=== PATIENT | female | born 1970 | race Caucasian/White ===

== ENCOUNTER 2018-01-29 10:01 | Emergency (ER) | payer MEDICAID ==
[~2018-01-29] VITALS: Ht 167.6 cm; Wt 66.0 kg
[~2018-01-29 10:01] MED LIST: DIPH25CA83 PO; LOPE-155 PO
[2018-01-29 10:04] VITALS: BP 128/79
[2018-01-29 10:29] LABS: BASOPHILS # (AUTO) 0.1 X10'3 (0-0.2); EOSINOPHILS # (AUTO) 0.2 X10'3 (0-0.9); EOSINOPHILS % (AUTO) 2.7 % (0-6); HEMATOCRIT 38.4 % (35.0-45.0); HEMOGLOBIN 12.6 g/dl (12.0-16.0); LYMPHOCYTES # (AUTO) 2.6 X10'3 (1.1-4.8); MEAN CORPUSCULAR HEMOGLOBIN 28.1 PG (27.0-31.0); MEAN CORPUSCULAR VOLUME 85.1 FL (78-98); MEAN PLATELET VOLUME 9.3 FL (7.4-10.4); MONOCYTES # (AUTO) 0.6 X10'3 (0-0.9); NEUTROPHILS # (AUTO) 2.6 X10'3 (1.8-7.7); NEUTROPHILS % (AUTO) 43.3 % (42-75); PLATELET COUNT 235 X10'3 (140-440); RED BLOOD COUNT 4.51 X10'6 (4.20-5.60); RED CELL DISTRIBUTION WIDTH 14.2 % (11.5-14.5); WHITE BLOOD COUNT 6.1 X10'3 (4.5-11.0)
[2018-01-29 10:30] LABS: URINE HCG NEGATIVE (NEG)
[2018-01-29 10:37] LABS: INR 0.9 INR; PROTHROMBIN TIME 9.7 SECONDS (9.0-12.0)
[2018-01-29 10:41] LABS: CLARITY,URINE SLIGHTLY CLOUDY (Clear); COLOR,URINE YELLOW (Yellow); GLUCOSE, URINE NEGATIVE (Neg); KETONES,URINE NEGATIVE (Neg); LEUKOCYTE ESTERASE ,URINE SMALL (Neg); NITRITES, URINE NEGATIVE (Neg); OCCULT BLOOD,URINE NEGATIVE (Neg); PROTEIN,URINE NEGATIVE (Neg)
[2018-01-29 10:43] LABS: ALANINE AMINOTRANSFERASE 24 U/L (12-78); ALBUMIN 3.7 G/DL (3.4-5.0); ALBUMIN/GLOBULIN RATIO 0.9 (1.1-1.5); ALKALINE PHOSPHATASE 70 IU/L (46-116); ANION GAP 6 (8-16); ASPARTATE AMINO TRANSFERASE 9 U/L (10-37); BILIRUBIN,TOTAL 0.2 MG/DL (0.1-1.0); BLOOD UREA NITROGEN 10 MG/DL (7-18); BUN/CREATININE RATIO 12.2 (6.6-38.0); CALCIUM 8.4 MG/DL (8.5-10.1); CHLORIDE 105 MMOL/L (99-107); CREATININE 0.82 MG/DL (0.40-0.90); GLUCOSE 128 MG/DL (70-104); POTASSIUM 3.8 MMOL/L (3.5-5.1); SODIUM 139 MMOL/L (135-145); TOTAL CARBON DIOXIDE 28.1 MMOL/L (24-32); TOTAL PROTEIN 7.6 G/DL (6.4-8.2); eGFR 74 ML/MIN
[2018-01-29 10:50] LABS: UA COLLECTION TYPE CLN CATCH MIDSTREAM
[2018-01-29 10:52] LABS: BACTERIA,URINE FEW /HPF (Neg); CAL OXALATE CRYSTALS 2+ /HPF (NEGATIVE); MUCUS STRANDS FEW /LPF (Neg); RBC,URINE NONE SEEN /HPF (0-2); SQUAMOUS EPITHELIAL CELL,UR MODERATE /LPF (FEW)
== END 2018-01-29 11:29 | disposition left against medical advice (07) ==
LOC: ER 10:01
DX: R10.9 Unspecified abdominal pain (principal); Z53.21 Procedure and treatment not carried out due to patient leaving prior to being seen by health care provider
CPT/HCPCS: 36415; 80053; 81001; 81025; 85025; 85610; 87088; 99281

== ENCOUNTER 2020-04-30 17:51 | Emergency (ER) | payer MEDICAID ==
[~2020-04-30] VITALS: Ht 167.6 cm; Wt 76.8 kg
[~2020-04-30 17:51] MED LIST changes: -LOPE-155 PO; +LOPE-190 PO
[2020-04-30 17:54] VITALS: BP 128/78
== END 2020-04-30 19:57 | disposition left against medical advice (07) ==
LOC: ER 17:52
DX: N93.9 Abnormal uterine and vaginal bleeding, unspecified (principal); Z53.21 Procedure and treatment not carried out due to patient leaving prior to being seen by health care provider

== ENCOUNTER 2023-05-14 09:19 | Emergency (ER) | payer MEDICAID ==
[~2023-05-14] VITALS: Ht 167.6 cm; Wt 75.0 kg
[2023-05-14 09:23] VITALS: BP 127/86; PULSE 83; RESP 18; TEMP 97.5; O2SAT 97
[2023-05-14] MEDS ORDERED: acetaminophen 325mg tablet PO ONE (09:45)
--- NOTE | 2023-05-14 11:19 | NUR ---
650mg PO tylenol given to pt for ear pain. ear drops administered to help break up ear wax. tech in with patient removing earwax from both ears.
[2023-05-14] MEDS ORDERED: carbamide peroxide 15ml bottle EACH EAR SCH (20:00)
== END 2023-05-14 12:10 | disposition home or self-care (01) ==
LOC: ER 09:19
DX: H61.23 Impacted cerumen, bilateral (principal); Z79.899 Other long term (current) drug therapy
CPT/HCPCS: 69209; 99283

== ENCOUNTER → 2023-06-04 | Emergency (ER) | payer MEDICAID ==
[~2023-06-04] VITALS: Ht 167.6 cm; Wt 76.8 kg
[~2023-06-04] MED LIST changes: +AMOX-117 PO; +HYDROcodone/acetaminophen 5mg/325mg tablet PO ONE; +amox tr/potassium clavulanate 875/125mg TAB PO ONE
[2023-06-04 15:50] VITALS: BP 133/74; PULSE 117; RESP 16; O2SAT 94
[2023-06-04 16:16] VITALS: TEMP 98.6
== END | disposition home or self-care (01) ==
LOC: ER 15:48
DX: K04.7 Periapical abscess without sinus (principal)
CPT/HCPCS: 41800; 99283; 99284

== ENCOUNTER 2023-11-10 13:11 | Emergency (ER) | payer MEDICAID ==
[~2023-11-10] VITALS: Ht 167.6 cm; Wt 76.5 kg
[~2023-11-10 13:11] MED LIST changes: -AMOX-117 PO; -HYDROcodone/acetaminophen 5mg/325mg tablet PO ONE; -amox tr/potassium clavulanate 875/125mg TAB PO ONE
[2023-11-10 13:22] VITALS: BP 147/78; PULSE 93; RESP 18; O2SAT 97
[2023-11-10] MEDS ORDERED: METR-159 PO (14:05)
[2023-11-10] MEDS: azithromycin 250mg tablet PO ONE (14:14)
[2023-11-10] MEDS: CefTRIAXone 500MG IM Kit w/LIDOcaine IM ONE (14:16)
[2023-11-10 14:34] VITALS: TEMP 97.7
== END 2023-11-10 14:15 | disposition home or self-care (01) ==
LOC: ER 13:12
DX: N89.8 Other specified noninflammatory disorders of vagina (principal); A64 Unspecified sexually transmitted disease; Z79.899 Other long term (current) drug therapy
CPT/HCPCS: 96372; 99283; J0696